=== PATIENT | female | born 1935 | race Caucasian/White ===

== ENCOUNTER 2017-03-20 09:07 | Outpatient (CLI) | payer MEDICARE ==
[2017-03-20 10:15] LABS: ALT (SGPT) 22 U/L (8-55); AST (SGOT) 25 U/L (5-34); Alkaline Phosphatase 64 U/L (40-150); Anion Gap 11 mmol/L (10-20); BUN (Urea Nitrogen) 13 mg/dL (9.8-20.1); Bilirubin, Total 0.5 mg/dL (0.2-1.2); Calc. Creatinine Clearance 0 mL/min (70-130); Calcium 8.8 mg/dL (7.8-10.44); Carbon Dioxide 27 mmol/L (23-31); Cardiac Risk 3.3 (Less than 4.5); Chloride 107 mmol/L (98-107); Cholesterol 130 mg/dl (< 200 Desired); Estimated GFR-MDRD 58; Globulin 2.2 g/dL (2.4-3.5); Glucose 101 mg/dL (83-110); HDL Cholesterol 40 mg/dL (>60 Neg Risk); LDL Cholesterol, Calculated 69 mg/dL; Potassium 4.2 mmol/L (3.5-5.1); Protein, Total 6.2 g/dL (6.0-8.3); Sodium 141 mmol/L (136-145); Triglycerides 105 mg/dL (Less than 150)
[2017-03-20 10:33] LABS: Thyroid Stimulating Hormone 1.2448 uIU/mL (0.35-4.94)
[2017-03-20 17:41] LABS: Free Thyroxine Index 2.24 (1.4-3.1); T4 7.4 ug/dL (4.87-11.72)
== END 2017-03-20 09:08 | disposition home or self-care (01) ==
LOC: BURLAB 09:07
PROVIDERS: ATTEND Internal Medicine Cardiovascular Disease
DX: E03.9 Hypothyroidism, unspecified (principal); E78.00 Pure hypercholesterolemia, unspecified
CPT/HCPCS: 36415; 80053; 80061; 84436; 84443; 84479